=== PATIENT | female | born 1995 | race African-American/Black ===

== ENCOUNTER 2017-07-11 16:23 | Emergency (ER) | payer SELFPAY ==
[2017-07-11] MEDS ORDERED: NS 1,000 ML IV ONE (16:34)
[2017-07-11] MEDS ORDERED: MECLIZINE HCL 25 MG TAB PO ONE (16:35)
--- NOTE | 2017-07-11 16:40 | EDPHY ---
H & P Stated Complaint: Dizziness and pain in right arm at 4pm Time Seen by Provider: 07/11/17 16:35 HPI/ROS: HPI: This is a 21-year-old female who presents with Chief Complaint: Lightheadedness Location: Head Quality: Lightheaded Duration: Prior to arrival Signs and Symptoms: No fever, no chills, no nasal congestion, no neck stiffness , no shortness of breath, no nausea, no vomiting, no dysuria, no palpitations, no radiation, no weakness, no headache, no vision loss Timing: Sudden onset Severity: [id number] Context: Patient complains of sudden onset of lightheadedness while sitting at work accompanied by right arm tingling that started at her right biceps and radiated to her right 4th and 5th fingers. She has been at work for the last 6 hours at a local [employer], has only drink 1 glass of water and eaten 1 piece of pizza. She admits that she was drinking alcohol heavily last night and did not get a lot of sleep. She suspects that she may be dehydrated. 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 She denies the room spinning. Last menstrual period was 2 weeks ago. Patient does not have a primary care provider. Modifying Factors: Comment: ROS: See HPI Constitutional: No fever, no chills, no weight loss Eyes: No blurred vision Respiratory: No shortness of breath, no cough Cardiovascular: No chest pain Gastrointestinal: No nausea, no vomiting no diarrhea Genitourinary: No dysuria Extremities: No myalgias Neurologic: No weakness, no numbness Skin: No rashes Hematologic: No bruising, no bleeding CONSTITUTIONAL: Well-appearing young adult female, slightly anxious, awake and alert, no obvious distress HEENT: Atraumatic and normocephalic, PERRL, EOMI. Tympanic membranes clear. Oropharynx clear, no exudate and moist pink mucosa. Airway patent. No lymphadenopathy. No meningismus. Cardiovascular: Normal S1/S2, regular rate, regular rhythm, without murmur rub or gallop. PULMONARY/CHEST: Symmetrical and nontender. Clear to auscultation bilaterally. Good air movement. No accessory muscle usage. ABDOMEN: Soft, nondistended, nontender, no rebound, no guarding, no peritoneal signs, no masses or organomegaly. No CVAT. EXTREMITIES: 2/2 pulses, no deformities, no clubbing, no cyanosis or edema. Right elbow no medial or lateral epicondyle reproducible pain. Negative Phalen/ Tinel test. NEUROLOGICAL: no focal neuro deficits. GCS 15. No reproduction of dizziness with Delio maneuver. SKIN: Warm and dry, no erythema. no rash. Good capillary refill. Source: Patient Exam Limitations: No limitations - Personal History LMP (Females 10-55): 8-14 Days Ago Current Tetanus Diphtheria and Acellular Pertussis (TDAP): Unsure - Medical/Surgical History Hx Asthma: No Hx Chronic Respiratory Disease: No Hx Diabetes: No Hx Cardiac Disease: No Hx Renal Disease: No Hx Cirrhosis: No Hx Alcoholism: No Hx HIV/AIDS: No Hx Splenectomy or Spleen Trauma: No Other PMH: Denies - Social History Smoking Status: Light smoker Additional Social History: Student. No primary care provider. Constitutional: Initial Vital Signs Temperature (C) 36.6 C 07/11/17 16:23 Heart Rate 89 07/11/17 16:23 Respiratory Rate 18 07/11/17 16:23 Blood Pressure 152/84 H 07/11/17 16:23 O2 Sat (%) 98 07/11/17 16:23 O2 Delivery Mode Room Air Allergies/Adverse Reactions: seasonal Allergy (Uncoded 07/11/17 16:27) Home Medications: Medication Instructions Recorded NK [No Known Home Meds] 07/11/17 Medical Decision Making ED Course/Re-evaluation: Labs, urinalysis, test, IV fluids, oral medication ordered Suspect mild dehydration with an anxiety component. Afebrile without systemic signs. Given 1 L normal saline and p.o. meclizine. Blood pressure elevated upon arrival. No signs of meningitis/otitis media/sinusitis/eustachian tube dysfunction 1830: Re-evaluated patient and symptoms completely resolved. Lab values grossly unremarkable except mild leukocytosis. No signs of acute kidney injury/electrolyte imbalance/anemia/sepsis/intractable cyclical nausea vomiting/neurovascular compromise Advised continue supportive care today. Differential Diagnosis: Dizziness including but not limited to peripheral and central causes of vertigo , orthostatic causes including dehydration, and blood loss. - Data Points Laboratory Results: Laboratory Results 07/11/17 16:40 07/11/17 16:40 07/11/17 07/11/17 07/11/17 17:45 16:40 16:40 WBC RBC Hgb Hct MCV MCH MCHC RDW Plt Count MPV Neut % (Auto) Lymph % (Auto) [place] % (Auto) Eos % (Auto) Baso % (Auto) Nucleat RBC Rel Count Absolute Neuts (auto) Absolute Lymphs (auto) Absolute Monos (auto) Absolute Eos (auto) Absolute Basos (auto) Absolute Nucleated RBC Immature Gran % Immature Gran # Sodium 138 mEq/L mEq/L (134-144) Potassium 3.8 mEq/L mEq/L (3.5-5.2) Chloride 101 mEq/L mEq/L (97-110) Carbon Dioxide 25 mEq/l mEq/l (22-31) Anion Gap 12 mEq/L mEq/L (8-16) BUN 14 mg/dL mg/dL (7-23) Creatinine 0.9 mg/dL mg/dL (0.6-1.0) Estimated GFR > 60 Glucose 108 mg/dL H mg/dL (70-100) Calcium 9.2 mg/dL mg/dL (8.5-10.4) Magnesium 1.8 mg/dL mg/dL (1.6-2.3) Beta HCG, Qual NEGATIVE Urine Color YELLOW Urine Appearance CLEAR Urine pH 6.0 (5.0-7.5) Ur Specific [place] 1.016 (1.002-1.030) Urine Protein NEGATIVE (NEGATIVE) Urine Ketones NEGATIVE (NEGATIVE) Urine Blood NEGATIVE (NEGATIVE) Urine Nitrate NEGATIVE (NEGATIVE) Urine Bilirubin NEGATIVE (NEGATIVE) Urine Urobilinogen NEGATIVE EU EU (0.2-1.0) Ur Leukocyte Esterase NEGATIVE (NEGATIVE) Urine Glucose NEGATIVE (NEGATIVE) 07/11/17 16:40 WBC 10.87 10^3/uL H 10^3/uL (3.80-9.50) RBC 4.87 10^6/uL 10^6/uL (4.18-5.33) Hgb 14.9 g/dL g/dL (12.6-16.3) Hct 40.2 % % (38.0-47.0) MCV 82.5 fL fL (81.5-99.8) MCH 30.6 pg pg (27.9-34.1) MCHC 37.1 g/dL H g/dL (32.4-36.7) RDW 13.2 % % (11.5-15.2) Plt Count 288 10^3/uL 10^3/uL (150-400) MPV 10.3 fL fL (8.7-11.7) Neut % (Auto) 64.4 % % (39.3-74.2) Lymph % (Auto) 26.5 % % (15.0-45.0) [place] % (Auto) 7.4 % % (4.5-13.0) Eos % (Auto) 0.3 % L % (0.6-7.6) Baso % (Auto) 1.0 % % (0.3-1.7) Nucleat RBC Rel Count 0.0 % % (0.0-0.2) Absolute Neuts (auto) 7.01 10^3/uL H 10^3/uL (1.70-6.50) Absolute Lymphs (auto) 2.88 10^3/uL 10^3/uL (1.00-3.00) Absolute Monos (auto) 0.80 10^3/uL 10^3/uL (0.30-0.80) Absolute Eos (auto) 0.03 10^3/uL 10^3/uL (0.03-0.40) Absolute Basos (auto) 0.11 10^3/uL H 10^3/uL (0.02-0.10) Absolute Nucleated RBC 0.00 10^3/uL 10^3/uL (0-0.01) Immature Gran % 0.4 % % (0.0-1.1) Immature Gran # 0.04 10^3/uL 10^3/uL (0.00-0.10) Sodium Potassium Chloride Carbon Dioxide Anion Gap BUN Creatinine Estimated GFR Glucose Calcium Magnesium Beta HCG, Qual Urine Color Urine Appearance Urine pH Ur Specific [place] Urine Protein Urine Ketones Urine Blood Urine Nitrate Urine Bilirubin Urine Urobilinogen Ur Leukocyte Esterase Urine Glucose Medications Given: Discontinued Medications Sodium Chloride (Ns) 1,000 mls @ 0 mls/hr IV EDNOW ONE; Wide Open PRN Reason: Protocol Stop: 07/11/17 16:35 Last Admin: 07/11/17 16:46 Dose: 1,000 mls Meclizine HCl (Meclizine Hcl) 25 mg PO EDNOW ONE Stop: 07/11/17 16:36 Last Admin: 07/11/17 16:47 Dose: 25 mg Departure - Departure Disposition: Home, Routine, Self-Care Clinical Impression: Hangover effect Qualifiers: Complication of substance-induced condition: uncomplicated Qualified Code(s): F10.120 - Alcohol abuse with intoxication, uncomplicated Condition: Good Instructions: Dehydration (ED) Additional Instructions: Please drink 6-8 glasses of water and eat 2-3 meals daily. Please avoid excessive alcohol use. Referrals: [facility],. [Clinic] - As per Instructions
[2017-07-11 16:50] LABS: % IMMATURE GRANULYOCYTES 0.4 % (0.0-1.1); ABSOLUTE IMMATURE GRANULOCYTES 0.04 10^3/uL (0.00-0.10); ADD DIFF? NO; ADD MORPH? NO; ADD SCAN? NO; ATYPICAL LYMPHOCYTE FLAG 10 (0-99); FRAGMENT RBC FLAG 0 (0-99); HEMATOCRIT 40.2 % (38.0-47.0); HEMOGLOBIN 14.9 g/dL (12.6-16.3); LEFT SHIFT FLG 0 (0-99); LIPEMIA HEMOLYSIS FLAG 90 (0-99); MEAN CELL HEMOGLOBIN 30.6 pg (27.9-34.1); MEAN CELL HEMOGLOBIN CONCENTR. 37.1 g/dL (32.4-36.7); MEAN CELL VOLUME 82.5 fL (81.5-99.8); MEAN PLATELET VOLUME 10.3 fL (8.7-11.7); PLATELET CLUMPS FLAG 0 (0-99); PLATELET COUNT 288 10^3/uL (150-400); RED BLOOD CELL COUNT 4.87 10^6/uL (4.18-5.33); RED CELL DISTRIBUTION WIDTH 13.2 % (11.5-15.2)
[2017-07-11 17:01] LABS: ANION GAP 12 mEq/L (8-16); CALCIUM 9.2 mg/dL (8.5-10.4); CARBON DIOXIDE 25 mEq/l (22-31); CHLORIDE 101 mEq/L (97-110); CREATININE 0.9 mg/dL (0.6-1.0); GLOMERULAR FILTRATION RATE > 60; GLUCOSE 108 mg/dL (70-100); MAGNESIUM 1.8 mg/dL (1.6-2.3); POTASSIUM 3.8 mEq/L (3.5-5.2); SODIUM 138 mEq/L (134-144)
[2017-07-11 18:38] LABS: COLOR YELLOW; LEUKOCYTE ESTERASE,URINE NEGATIVE (NEGATIVE); NITRITE,URINE NEGATIVE (NEGATIVE)
[2017-07-11 19:05] VITALS: BP 122/68; PULSE 78; RESP 19; TEMP 98.4; O2SAT 98
== END 2017-07-11 19:02 | disposition home or self-care (01) ==
DX: F10.120 Alcohol abuse with intoxication, uncomplicated (principal); F17.200 Nicotine dependence, unspecified, uncomplicated; E86.9 Volume depletion, unspecified